=== PATIENT | female | born 1960 | race Caucasian/White ===

== ENCOUNTER 2020-12-18 06:06 | Inpatient (IN) ==
[2020-12-18] MEDS ORDERED: CeFAZolin Syr 2,000MG/20 ML 2,000 MG/20 ML SYRINGE IVPB ONE (06:33)
[2020-12-18] MEDS ORDERED: Ondansetron 4 MG/2 ML VIAL ONE (06:45)
[2020-12-18] MEDS ORDERED: *HR* Rocuronium Bromide 50 MG/5 ML VIAL ONE ×2 (06:45→09:28)
[2020-12-18] MEDS ORDERED: Ringers Solution, Lactated 1,000 ML IVC SCH (06:45)
[2020-12-18] MEDS ORDERED: Lidocaine -MPF 2% 2 ML VIAL ONE ×3 (06:45→10:33)
[2020-12-18] MEDS ORDERED: *HR* Propofol 200 MG/20 ML VIAL IVP ONE (06:46)
[2020-12-18] MEDS ORDERED: Protamine Sulfate 50 MG/5 ML VIAL IVP ONE (07:03)
[2020-12-18] MEDS ORDERED: Heparin 1,000 UNITS/500 mL 1,000 ML ONE (07:03)
[2020-12-18] MEDS ORDERED: *HR* Heparin 5,000 UNIT/ML VIAL ONE ×2 (07:19→11:01)
[2020-12-18] MEDS ORDERED: *HR* FentaNYL (PF) 100 MCG/2 ML VIAL ONE (07:21)
[2020-12-18] MEDS ORDERED: *HR* Midazolam HCl 2 MG/2 ML VIAL ONE (07:21)
[2020-12-18] MEDS ORDERED: Scopolamine Patch 1.5 MG PATCH.TD72 TD ONE (07:22)
[2020-12-18] MEDS ORDERED: *HR* Vasopressin 20 UNIT/ML VIAL ONE (07:22)
[2020-12-18] MEDS ORDERED: Promethazine 6.25 MG in Water for inj. (sterile) 20 ML IVPB PRN (07:22)
[2020-12-18] MEDS ORDERED: Pregabalin 75 MG CAPSULE PO ONE (07:22)
[2020-12-18] MEDS ORDERED: *HR* OxyCODONE Immed Rel 5 MG TABLET PO PRN ×2 (07:22→14:48)
[2020-12-18] MEDS ORDERED: *HR* Labetalol 20 MG/4 ML SYRINGE IVP PRN ×2 (07:22→14:48)
[2020-12-18] MEDS ORDERED: *HR* HYDROmorphone 2 MG TABLET PO PRN (07:22)
[2020-12-18] MEDS ORDERED: Famotidine 20 MG/2 ML VIAL IVP ONE (07:22)
[2020-12-18] MEDS ORDERED: Acetaminophen IV 1,000 MG/100 ML BAG IVPB ONE (07:22)
[2020-12-18] MEDS ORDERED: *HR* Remifentanil 2 MG VIAL IVP ONE (07:23)
[2020-12-18] MEDS ORDERED: Heparin 1,000 UNITS/500 mL 500 ML ONE (07:29)
[2020-12-18] MEDS ORDERED: ceFAZolin 1,000 MG, Sodium Chloride IRRigation 1,000 ML IR ONE (07:45)
[2020-12-18] MEDS ORDERED: *HR* Remifentanil 1 MG VIAL IVP ONE ×2 (10:22→11:42)
[2020-12-18] MEDS ORDERED: *HR* HYDROMORPHONE 2 MG/ML VIAL ONE (12:45)
[2020-12-18] MEDS: *HR* HYDROmorphone (PF) 1 MG/ML SYRINGE IVP PRN ×2 (13:50→14:00)
[2020-12-18] MEDS ORDERED: Naloxone 0.4 MG/ML INJ IVP PRN (14:48)
[2020-12-18] MEDS ORDERED: *HR* HYDROcodone/Acet 5/325 mg TABLET PO PRN (14:48)
[2020-12-18] MEDS ORDERED: Ondansetron 4 MG/2 ML VIAL IVP PRN (14:48)
[2020-12-18] MEDS ORDERED: Acetaminophen 325 MG TABLET PO PRN (14:48)
[2020-12-18] MEDS: Ibuprofen 400 MG TABLET PO SCH ×2 (15:10→21:04)
[2020-12-18] MEDS: CeFAZolin 2 GM/120 ML BAG IVPB SCH (15:29)
[2020-12-18] MEDS: *HR* Glimepiride 2 MG TABLET PO SCH (21:05)
[2020-12-18] MEDS: lisinopriL 10 MG TABLET PO SCH (21:05)
[2020-12-19] MEDS: CeFAZolin 2 GM/120 ML BAG IVPB SCH ×2 (00:02→07:37)
[2020-12-19 05:59] LABS: Basophils % 0.1 %; Hematocrit 34.1 % (35.3-44.9); Hemoglobin 10.3 g/dL (11.5-15.4); Immature Granulocytes % 0.6 % (0-4); Lymphocytes # 0.6 K/mcL (0.6-4.6); Lymphocytes % 5.9 %; Mean Corpuscular HGB Conc 30.2 g/dL (31.6-35.5); Mean Corpuscular Volume 92.7 fL (83.0-100.0); Mean Platelet Volume 9.8 fL (9.4-12.4); Monocytes # 0.6 K/mcL (0.0-1.3); Monocytes % 5.5 %; Neutrophils # 8.8 K/mcL (1.6-8.9); Platelet Count 239 K/mcL (140-400); Red Blood Count 3.68 M/mcL (3.82-4.97); Segmented Neutrophils % 87.9 %
[2020-12-19 06:22] LABS: BUN/Creatinine Ratio 36 (6-26); Blood Urea Nitrogen 39 mg/dL (8-23); Calcium 7.9 mg/dL (8.6-10.3); Carbon Dioxide 23 mEq/L (23-29); Chloride 106 mEq/L (98-107); Glucose 322 mg/dL (70-105); Osmolality,Calculated 304 (280-300); Potassium 4.5 mEq/L (3.5-5.1); Sodium 136 mEq/L (136-145); eGFR For African Americans > 60 (> 60); eGFR For Non-African Americans 52 (> 60)
[2020-12-19] MEDS: Ibuprofen 400 MG TABLET PO SCH ×2 (08:15→15:57)
[2020-12-19] MEDS: lisinopriL 10 MG TABLET PO SCH (08:15)
[2020-12-19] MEDS: *HR* Glimepiride 2 MG TABLET PO SCH (08:16)
[2020-12-19] MEDS ORDERED: DilTIAZem CD (24hr) 120 MG CAP.ER.24H PO SCH (09:00)
[2020-12-19 11:18] VITALS: O2SAT 97
[2020-12-19 16:11] VITALS: BP 120/50; PULSE 67; TEMP 98.2
== END 2020-12-19 19:23 | disposition home or self-care (01) | DRG 253 ==
LOC: SAMDAY 06:06 → 2NNU 14:45
PROVIDERS: ADMIT Surgery Vascular Surgery; ATTEND Surgery Vascular Surgery